=== PATIENT | male | born 1995 | race Caucasian/White ===

== ENCOUNTER 2016-07-23 06:12 | Emergency (ER) | payer OTHER ==
[2016-07-23 07:16] LABS: HEMOGLOBIN 15.2 gm/dl (14.0-17.5); RED BLOOD COUNT 5.14 M/UL (4.20-5.50); WHITE BLOOD COUNT 8.5 K/UL (4.5-11.0)
[2016-07-23 07:35] LABS: BUN/CREATININE RATIO 18 (0-10)
== END 2016-07-23 09:54 | disposition home or self-care (01) ==
LOC: ER1 06:12
PROVIDERS: Student in an Organized Health Care Education/Training Program
DX: K59.00 Constipation, unspecified (principal); Z79.891 Long term (current) use of opiate analgesic; Z79.899 Other long term (current) drug therapy
CPT/HCPCS: 36415; 80053; 83605; 85025; 87040; 96361; 96374; 96375; 96376; 99283; J2270; J2405

== ENCOUNTER → 2021-12-03 | Outpatient (CLI) | payer OTHER | LOC: EXRD 12-02 10:30 | DX: R11.2 Nausea with vomiting, unspecified (principal); R10.9 Unspecified abdominal pain; R93.2 Abnormal findings on diagnostic imaging of liver and biliary tract | CPT/HCPCS: 76705; 78226; A9537 ==

== ENCOUNTER 2022-01-18 14:00 | Emergency (ER) | payer OTHER ==
[2022-01-18] MEDS ORDERED: AMOX TR-K CLV1 EAC4 PO (19:27)
== END 2022-01-18 19:30 | disposition home or self-care (01) ==
LOC: ER1 14:00
DX: S61.452A Open bite of left hand, initial encounter (principal); K21.9 Gastro-esophageal reflux disease without esophagitis; F17.220 Nicotine dependence, chewing tobacco, uncomplicated; W54.0XXA Bitten by dog, initial encounter; Y92.009 Unspecified place in unspecified non-institutional (private) residence as the place of occurrence of the external cause; Z23 Encounter for immunization
CPT/HCPCS: 73130; 90471; 90715; 99283